=== PATIENT | female | born 1955 | race African-American/Black ===

== ENCOUNTER 2022-09-06 13:51 | Inpatient (IN) | payer OTHER ==
[2022-09-06] MEDS ORDERED: ONDANSETRON 4 MG/2 ML VIAL ONE (14:32)
--- NOTE | 2022-09-06 15:17 | RAD REPORT ---
EXAM DESCRIPTION: RAD - Chest Single View - 09/06/2022 3:02 pm CLINICAL HISTORY: CHEST PAIN Chest pain. COMPARISON: Chest Single View dated 02/18/2016; Chest Single View dated 02/17/2016; CHEST SINGLE VIEW dated 06/16/2011; CHEST SINGLE VIEW dated 06/15/2011 FINDINGS: Portable technique limits examination quality. Mild bilateral pulmonary opacities may represent pulmonary edema or pneumonia. The heart is mildly en larged in size. No displaced fractures. IMPRESSION: CHF/ volume overload versus pneumonia.
[2022-09-06 15:43] LABS: Absolute Lymphocytes (CBC) 1.9 K/uL (0.7-4.9); Hematocrit 37.7 % (36.0-45.0); Lymphocytes % 10.3 % (15.3-44.8); MCV 70.9 fL (80-100); RBC Red Blood Cell Count 5.31 M/uL (3.86-4.86)
[2022-09-06 15:55] LABS: Protime INR 1.05
[2022-09-06 16:15] LABS: ALT/SGPT 15 U/L (13-56); AST/SGOT 15 U/L (15-37); Albumin 3.1 g/dL (3.4-5.0); Alkaline Phosphatase 115 U/L (45-117); BUN Blood Urea Nitrogen 17 mg/dL (7-18); Bicarbonate 23 mmol/L (21-32); Bilirubin Total 0.3 mg/dL (0.2-1.0); Glomerular Filtration Rate 63 ml/min (=/>90); Glucose Level 180 mg/dL (74-106); Magnesium 2.3 mg/dL (1.6-2.4); NT PRO-BNP 118 pg/mL (<125); Protein, Total 8.2 g/dL (6.4-8.2); Sodium Level 141 mmol/L (136-145); Troponin High Sensitivity 18.6 pg/mL (<58.9)
[2022-09-06 16:32] LABS: Bilirubin Direct < 0.1 mg/dL (0-0.2)
[2022-09-06 16:51] LABS: Urine Blood Negative (Negative); Urine Glucose Negative (Negative); Urine Protein 2+ (Negative); Urine Specific Gravity >=1.030 (1.005-1.030)
[2022-09-06 17:06] LABS: Urine Bacteria None Seen /HPF (<20); Urine Mucus Slight /HPF (None Seen); Urine RBC <5 /HPF (None Seen)
--- NOTE | 2022-09-06 17:20 | RAD REPORT ---
EXAM DESCRIPTION: CTAbdomen Pelvis W Contrast - 09/06/2022 5:13 pm CLINICAL HISTORY: Abdominal pain. ABD PAIN COMPARISON: No comparisons TECHNIQUE: Biphasic CT imaging of the abdomen and pelvis was performed with 100 ml non-ionic IV cont rast. All CT scans are performed using dose optimization technique as appropriate and may include automated exposure control or mA/KV adjustment according to patient size. FINDINGS: The lung bases are clear.Cholecystectomy clips. The liver, spleen, pancreas, adrenal glands and kidneys are within normal limits. No bowel obstruction, free air, free fluid or abscess. Aortoiliac atherosclerosis. Nonvisualized appe ndix. No evidence of significant lymphadenopathy. No suspicious bony findings. IMPRESSION: No acute intra-abdominal or pelvic finding.
--- NOTE | 2022-09-06 17:26 | EDPHYS ---
Physician Documentation [facility] Name: Renetta Palmer Age: 67 yrs Sex: Female : 1955 Arrival Date: 09/06/2022 Time: 13:55 Bed 16 Private MD: ED Physician Mariam Solomon HPI: 09/06 14:36 This 67 yrs old Black Female presents to ER via EMS with complaints of Epigastric Pain, sp3 Arm Problem. 14:36 67-year-old female with a history of CVA, diabetes, anemia, anxiety presents from the [facility] with chief complaint epigastric pain and nausea for approximately 24 hours. She notified [facility] staff of her symptoms to activated EMS to bring her into the ED. Vital signs have been normal for EMS patient has no other complaints including fever, URI symptoms, chest pain, back pain, shortness of breath, actual vomiting, diarrhea bleeding, any other symptoms on ROS. Surgical history includes cholecystectomy.. Historical: - Allergies: 14:10 No Known Allergies; ph - PMHx: 14:10 Anxiety; Anemia; constipation; CVA; Depression; Diabetes - NIDDM; Difficulty walking; ph GERD; Gout; Hemiplegia R; Hyperlipidemia; Hypertension; insomnia; MUSCLE WEAKNESS; Toe amputation R foot; VASCULAR DEMENTIA; - Immunization history:: Adult Immunizations up to date. - Social history:: Smoking status: Patient denies any tobacco usage or history of. ROS: 14:37 Constitutional: Negative for fever, chills, and weight loss, Eyes: Negative for injury, sp3 pain, redness, and discharge, Neck: Negative for injury, pain, and swelling, Cardiovascular: Negative for chest pain, palpitations, and edema, Respiratory: Negative for shortness of breath, cough, wheezing, and pleuritic chest pain, Back: Negative for injury and pain, MS/Extremity: Negative for injury and deformity, Skin: Negative for injury, rash, and discoloration, Neuro: Negative for headache, weakness, numbness, tingling, and seizure, Psych: Negative for depression, anxiety, suicide ideation, homicidal ideation, and hallucinations, Allergy/Immunology: Negative for hives, rash, and allergies, Endocrine: Negative for neck swelling, polydipsia, polyuria, polyphagia, and marked weight changes, Hematologic/Lymphatic: Negative for swollen nodes, abnormal bleeding, and unusual bruising. 14:37 All other systems are negative. Exam: 14:37 Constitutional: This is a well developed, well nourished patient who is awake, alert, sp3 and in no acute distress. Head/Face: Normocephalic, atraumatic. Eyes: Pupils equal round and reactive to light, extra-ocular motions intact. Lids and lashes normal. Conjunctiva and sclera are non-icteric and not injected. Cornea within normal limits. Periorbital areas with no swelling, redness, or edema. Neck: Trachea midline, no thyromegaly or masses palpated, and no cervical lymphadenopathy. Supple, full range of motion without nuchal rigidity, or vertebral point tenderness. No Meningismus. Chest/axilla: Normal chest wall appearance and motion. Nontender with no deformity. No lesions are appreciated. Cardiovascular: Regular rate and rhythm with a normal S1 and S2. No gallops, murmurs, or rubs. Normal PMI, no JVD. No pulse deficits. Respiratory: Lungs have equal breath sounds bilaterally, clear to auscultation and percussion. No rales, rhonchi or wheezes noted. No increased work of breathing, no retractions or nasal flaring. Back: No spinal tenderness. No costovertebral tenderness. Full range of motion. Skin: Warm, dry with normal turgor. Normal color with no rashes, no lesions, and no evidence of cellulitis. MS/ Extremity: Pulses equal, no cyanosis. Neurovascular intact. Full, normal range of motion. Neuro: Awake and alert, GCS 15, oriented to person, place, time, and situation. Cranial nerves II-XII grossly intact. Motor strength 5/5 in all extremities. Sensory grossly intact. Cerebellar exam normal. Normal gait. Psych: Awake, alert, with orientation to person, place and time. Behavior, mood, and affect are within normal limits. 14:37 Abdomen/GI: Patient with mild epigastric pain without peritoneal signs, rebound or guarding. Patient is resting comfortably and there is no pain at rest without palpation.. 18:21 ECG was reviewed by the Attending Physician. EKG demonstrates normal sinus rhythm at 70 sp3 bpm with normal intervals, normal QRS, normal axis, nonspecific diffuse ST/T changes without evidence of acute ischemia. In the setting of EKG with artifact. Vital Signs: 14:03 BP 159 / 48; Pulse 76; Resp 18; Temp 97.9; Pulse Ox 95% on R/A; Weight 83.91 kg; Height ph 5 ft. 4 in. (162.56 cm); 15:15 BP 161 / 51; Pulse 66; Resp 16; Pulse Ox 95% on R/A; ph 16:14 BP 159 / 45; Pulse 67; Resp 18; Pulse Ox 96% on R/A; ph 19:17 BP 169 / 67; Pulse 68; Resp 18; Pulse Ox 94% on R/A; ph 20:20 BP 165 / 65; Pulse 65; Resp 18; Temp 98.4(O); Pulse Ox 94% on R/A; Pain 8/10; pf1 14:03 Body Mass Index 31.75 (83.91 kg, 162.56 cm) ph MDM: 14:09 Patient medically screened. sp3 14:38 Data reviewed: vital signs, nurses notes, EMS record, [facility] records, lab test sp3 result(s), EKG, radiologic studies. ED course: 67-year-old female with PMH noted above with epigastric pain. Differential diagnosis is broad and includes pancreatitis, ACS, pneumonia, aortic pathology, UTI/kidney stone/pyelonephritis, no abdominal pain, among others. I am not highly suspicious for mesenteric ischemia, shock, or any other critical findings. Will include CT scan of the abdomen and pelvis, laboratory values, EKG, urine analysis, and general observation and supportive care. Zofran IV has been ordered. Patient declined pain medication at this time. Ultimate disposition pending work-up and patient course.. 17:22 ED course: 67-year-old female with pneumonia on chest x-ray and elevated WBC sp3 count/leukocytosis. CT scan of the abdomen pelvis is negative. We will start antibiotics and admit patient at this time. Blood cultures were also be drawn.. 09/06 14:09 Order name: Basic Metabolic Panel; Complete Time: 16:37 sp3 09/06 14:09 Order name: CBC with Diff; Complete Time: 16:37 sp3 09/06 14:09 Order name: LFT's; Complete Time: 16:37 sp3 09/06 14:09 Order name: Magnesium; Complete Time: 16:37 sp3 09/06 14:09 Order name: NT PRO-BNP; Complete Time: 16:37 sp3 09/06 14:09 Order name: PT-INR; Complete Time: 16:37 sp3 09/06 14:09 Order name: Troponin HS; Complete Time: 16:37 sp3 09/06 14:09 Order name: UA MICROSCOPIC; Complete Time: 17:22 sp3 09/06 16:51 Order name: Urine Dipstick-Ancillary; Complete Time: 17:22 EDMS 09/06 17:24 Order name: Blood Culture Adult (2) sp3 09/06 17:32 Order name: COVID-19/FLU A+B ph 09/06 19:14 Order name: Magnesium EDMS 09/06 19:14 Order name: Phosphorus EDMS 09/06 19:14 Order name: T4 Free EDMS 09/06 14:09 Order name: XRAY Chest (1 view); Complete Time: 16:37 sp3 09/06 14:09 Order name: EKG; Complete Time: 14:10 sp3 09/06 14:09 Order name: Cardiac monitoring; Complete Time: 17:19 sp3 09/06 14:24 Order name: CT Abd/Pelvis - IV Contrast Only; Complete Time: 17:22 sp3 09/06 19:14 Order name: 60g Consistent Carbohydrate (ADA 1800/2000); Complete Time: 20:01 EDMS 09/06 19:14 Order name: Thyroid Stimulating Hormone EDMS 09/06 19:14 Order name: Urinalysis EDMS 09/06 19:14 Order name: Basic Metabolic Panel EDMS 09/06 19:14 Order name: Basic Metabolic Panel EDMS 09/06 19:14 Order name: CBC with Automated Diff EDMS 09/06 19:14 Order name: CBC with Automated Diff EDMS 09/06 19:14 Order name: NT PRO-BNP EDMS 09/06 19:14 Order name: NT PRO-BNP EDMS 09/06 14:09 Order name: EKG - Nurse/Tech; Complete Time: 17:19 sp3 09/06 14:09 Order name: IV Saline Lock; Complete Time: 15:40 sp3 09/06 14:09 Order name: Labs collected and sent; Complete Time: 15:40 sp3 09/06 14:09 Order name: O2 Per Protocol; Complete Time: 15:40 sp3 09/06 14:09 Order name: O2 Sat Monitoring; Complete Time: 15:40 sp3 09/06 14:09 Order name: Urine Dipstick-Ancillary (obtain specimen); Complete Time: 16:55 sp3 09/06 14:46 Order name: Misc. Order: recollect all labs; Complete Time: 16:42 jl7 Administered Medications: 15:15 Drug: Zofran (Ondansetron) 4 mg Route: IVP; Site: left antecubital; ph 19:32 Follow up: Response: No adverse reaction; Nausea is decreased ph 20:10 Drug: Cefepime 1 grams Route: IVPB; Rate: 200 ml/hr; Infused Over: 30 mins; Site: left pf1 antecubital; 20:46 Follow up: Response: No adverse reaction; IV Status: Completed infusion; IV Intake: ll3 100ml 20:46 Drug: vancoMYCIN 1 grams Route: IVPB; Infused Over: 2 hrs; Site: left antecubital; ll3 21:38 Follow up: Response: No adverse reaction; IV Status: Infusion continued upon admission pf1 Disposition Summary: 09/06/22 17:26 Hospitalization Ordered Hospitalization Status: Inpatient Admission sp3 Provider: Barry Rahman sp3 [facility] sp3 Condition: Stable sp3 Problem: new sp3 Symptoms: have worsened sp3 Bed/Room Type: Standard sp3 Room Assignment: 405(09/06/22 20:39) cg Diagnosis - Lobar pneumonia, unspecified organism sp3 Forms: - Medication Reconciliation Form sp3 - SBAR form sp3 Signatures: Dispatcher [employer] EDDevora New RN RN ph Garcia, Cindy RN RN Heidi Broderick RN RN jl7 Mariam Solomon MD MD sp3 Niru Hawkins RN RN ll3 Kenzie urbina RN RN pf1 Corrections: (The following items were deleted from the chart) 20:39 17:26 sp3 cg
--- NOTE | 2022-09-06 17:26 | ER ---
Nurse's Notes [facility] [place] Name: Renetta Palmer Age: 67 yrs Sex: Female : 1955 Arrival Date: 09/06/2022 Time: 13:55 Bed 16 Private MD: Diagnosis: Lobar pneumonia, unspecified organism Presentation: 09/06 14:03 Chief complaint: EMS states: Pt from [facility], reports nausea, upset ph stomach, and loss of appetite for "a few days", staff also reported L arm numbness, pt denies at this time, hypertensive w/ systolic in 160s, BGL 190. Coronavirus screen: Vaccine status: Patient reports receiving the 2nd dose of the covid vaccine. Ebola Screen: No symptoms or risks identified at this time. Initial Sepsis Screen: Does the patient meet any 2 criteria? No. Patient's initial sepsis screen is negative. Does the patient have a suspected source of infection? No. Patient's initial sepsis screen is negative. Risk Assessment: Do you want to hurt yourself or someone else? Patient reports no desire to harm self or others. Onset of symptoms was September 06, 2022. 14:03 Method Of Arrival: EMS: [facility] 14:03 Acuity: CRYS 3 ph Triage Assessment: 14:11 General: Appears in no apparent distress. uncomfortable, Behavior is calm, cooperative, ph appropriate for age. Pain: Complains of pain in abdomen. Neuro: Level of Consciousness is awake, alert, obeys commands, Oriented to person, place, situation. Cardiovascular: Reports nausea, Denies chest pain, shortness of breath, Capillary refill < 3 seconds in bilateral fingers Patient's skin is warm and dry. Respiratory: Airway is patent Respiratory effort is even, unlabored, Respiratory pattern is regular, symmetrical. GI: Abdomen is non-distended, Reports upper abdominal pain, nausea. : No signs and/or symptoms were reported regarding the genitourinary system. Historical: - Allergies: 14:10 No Known Allergies; ph - PMHx: 14:10 Anxiety; Anemia; constipation; CVA; Depression; Diabetes - NIDDM; Difficulty walking; ph GERD; Gout; Hemiplegia R; Hyperlipidemia; Hypertension; insomnia; MUSCLE WEAKNESS; Toe amputation R foot; VASCULAR DEMENTIA; - Immunization history:: Adult Immunizations up to date. - Social history:: Smoking status: Patient denies any tobacco usage or history of. Screenin:12 [facility] ED Fall Risk Assessment (Adult) History of falling in the last 3 months, ph including since admission No falls in past 3 months (0 pts) Confusion or Disorientation Yes (5 pts) Intoxicated or Sedated No (0 pts) Impaired Gait Yes (1 pt) Mobility Assist Device Used Yes (1 pt) Altered Elimination Yes (1 pt) Score/Fall Risk Level 3 or more points = High Risk Oriented to surroundings, Maintained a safe environment, Provided non-skid footwear, Hourly rounding (assess needs \\T\\ fall precautionary measures) done, Activated bed/chair alarm. Abuse screen: Denies threats or abuse. Denies injuries from another. Nutritional screening: No deficits noted. Tuberculosis screening: No symptoms or risk factors identified. Assessment: 14:30 General: SEE TRIAGE ASSESSMENT. ph 16:16 Reassessment: Patient appears in no apparent distress at this time. Patient and/or ph family updated on plan of care and expected duration. Pain level reassessed. Pt drowsy but awakens easily to verbal stimuli, VSS. 17:30 Reassessment: Patient appears in no apparent distress at this time. Patient and/or ph family updated on plan of care and expected duration. Pain level reassessed. Derm: Decubitus located on sacrum approximately 2.6 cm to 7.5 cm is stage II bed has granulation present is draining small amount serosanguinous. 18:00 Reassessment: Patient appears in no apparent distress at this time. Patient and/or ph family updated on plan of care and expected duration. Pain level reassessed. Patient is alert, oriented x 3, equal unlabored respirations, skin warm/dry/pink. 19:00 General: Appears in no apparent distress. comfortable, obese, well groomed, Behavior is pf1 calm, cooperative, appropriate for age, quiet. 19:00 Pain: Complains of pain in abdomen Pain currently is 8 out of 10 on a pain scale. Pain: pf1 Pain began 2 days. Neuro: No deficits noted. Level of Consciousness is awake, alert, obeys commands, Oriented to person, place, time, situation. Cardiovascular: No deficits noted. Capillary refill < 3 seconds Patient's skin is warm and dry. Respiratory: No deficits noted. Airway is patent Trachea midline Respiratory effort is even, unlabored, Respiratory pattern is regular, symmetrical, Breath sounds are clear. GI: Abdomen is round non-distended, Bowel sounds present X 4 quads. Abd is soft Abdomen is tender to palpation in right upper quadrant, left upper quadrant, right lower quadrant and left lower quadrant with constipation. Patient stated LBM was today with small soft stool. 19:00 : No deficits noted. No signs and/or symptoms were reported regarding the pf1 genitourinary system. EENT: No deficits noted. No signs and/or symptoms were reported regarding the EENT system. Derm: Decubitus located on sacrum approximately 2.6 cm to 7.5 cm is stage II bed has granulation present is draining small amount serosanguinous. Musculoskeletal: Reports numbness in left hand. 19:17 Reassessment: Patient appears in no apparent distress at this time. Patient and/or ph family updated on plan of care and expected duration. Pain level reassessed. Patient is alert, oriented x 3, equal unlabored respirations, skin warm/dry/pink. 20:00 Reassessment: Patient appears in no apparent distress at this time. No changes from pf1 previously documented assessment. Patient and/or family updated on plan of care and expected duration. Pain level reassessed. Patient is alert, oriented x 3, equal unlabored respirations, skin warm/dry/pink. 21:00 Reassessment: Patient appears in no apparent distress at this time. No changes from pf1 previously documented assessment. Patient and/or family updated on plan of care and expected duration. Pain level reassessed. Patient is alert, oriented x 3, equal unlabored respirations, skin warm/dry/pink. Vital Signs: 14:03 BP 159 / 48; Pulse 76; Resp 18; Temp 97.9; Pulse Ox 95% on R/A; Weight 83.91 kg; Height ph 5 ft. 4 in. (162.56 cm); 15:15 BP 161 / 51; Pulse 66; Resp 16; Pulse Ox 95% on R/A; ph 16:14 BP 159 / 45; Pulse 67; Resp 18; Pulse Ox 96% on R/A; ph 19:17 BP 169 / 67; Pulse 68; Resp 18; Pulse Ox 94% on R/A; ph 20:20 BP 165 / 65; Pulse 65; Resp 18; Temp 98.4(O); Pulse Ox 94% on R/A; Pain 8/10; pf1 14:03 Body Mass Index 31.75 (83.91 kg, 162.56 cm) ph ED Course: 13:55 Patient arrived in ED. ph 13:59 Mariam Solomon MD is Attending Physician. sp3 14:03 Devora Rabago, RN is Primary Nurse. ph 14:10 Triage completed. ph 14:11 Arm band placed on Patient placed in an exam room, on a stretcher. ph 14:13 Patient has correct armband on for positive identification. Bed in low position. Call ph light in reach. Side rails up X2. Pulse ox on. NIBP on. 14:13 Inserted saline lock: 20 gauge in left antecubital area, using aseptic technique. Blood ph collected. 15:04 XRAY Chest (1 view) In Process Unspecified. EDMS 15:21 Missed attempt(s): 22 gauge in right antecubital area. Bleeding controlled, band aid ph applied, catheter tip intact. 16:55 UA MICROSCOPIC Sent. zm 17:15 CT Abd/Pelvis - IV Contrast Only In Process Unspecified. EDMS 17:26 Barry Rahman is Hospitalizing Provider. sp3 19:00 Patient has correct armband on for positive identification. Bed in low position. Call pf1 light in reach. Side rails up X2. 19:32 No provider procedures requiring assistance completed. Patient admitted, IV remains in ph place. 20:17 Urinalysis Sent. pf1 Administered Medications: 15:15 Drug: Zofran (Ondansetron) 4 mg Route: IVP; Site: left antecubital; ph 19:32 Follow up: Response: No adverse reaction; Nausea is decreased ph 20:10 Drug: Cefepime 1 grams Route: IVPB; Rate: 200 ml/hr; Infused Over: 30 mins; Site: left pf1 antecubital; 20:46 Follow up: Response: No adverse reaction; IV Status: Completed infusion; IV Intake: ll3 100ml 20:46 Drug: vancoMYCIN 1 grams Route: IVPB; Infused Over: 2 hrs; Site: left antecubital; ll3 21:38 Follow up: Response: No adverse reaction; IV Status: Infusion continued upon admission pf1 Medication: 14:13 VIS not applicable for this client. ph Intake: 20:46 IV: 100ml; Total: 100ml. ll3 Outcome: 17:26 Decision to Hospitalize by Provider. sp3 21:21 Admitted to Tele accompanied by tech, via stretcher, room 405, with chart, Report pf1 called to [facility] 21:22 Condition: stable pf1 21:22 Instructed on the need for admit, Demonstrated understanding of instructions. 21:38 Patient left the ED. pf1 Signatures: Dispatcher [employer] Devora Kelly RN RN ph Mariam Solomon MD MD sp3 Niru Hawkins RN RN ll3 Rena Webster Pamala, RN RN pf1 Corrections: (The following items were deleted from the chart) 14:12 14:11 Cardiovascular: Capillary refill < 3 seconds in bilateral fingers Patient's skin ph is warm and dry. ph 14:12 14:11 Musculoskeletal: Circulation, motion, and sensation intact. Range of motion: ph intact in all extremities, ph [id number] 02:32 02/07 19:00 General: Appears in no apparent distress. comfortable, obese, well groomed, pf1 pf1
[2022-09-06] MEDS ORDERED: CEFEPIME 1 GM/VIAL ONE (18:07)
[2022-09-06] MEDS ORDERED: NA CHLORIDE 0.9% 100 ML ONE (18:07)
[2022-09-06] MEDS ORDERED: VANCOMYCIN 1 GM/VIAL ONE (18:07)
[2022-09-06] MEDS ORDERED: NA CHLORIDE 0.9% 250 ML ONE (18:07)
[2022-09-06 18:39] LABS: SARS-COV-2 RT PCR NEGATIVE (NEGATIVE)
[2022-09-06] MEDS ORDERED: ACETAMINOPHEN 325 MG TABLET PO PRN (19:06)
[2022-09-06] MEDS ORDERED: HYDROCODONE/APAP 5/325 MG TAB PO PRN (19:06)
[2022-09-06] MEDS ORDERED: MELATONIN PO PRN (19:08)
[2022-09-06] MEDS ORDERED: SIMETHICONE 80 MG TAB PO PRN (19:08)
[2022-09-06] MEDS ORDERED: MAGNESIUM HYDROXIDE 8% 30 ML PO PRN (19:08)
[2022-09-06] MEDS ORDERED: PYRIDOXINE HCL PO PRN (19:08)
[2022-09-06] MEDS ORDERED: ALBUTEROL 2.5 MG/3 ML NEB SOL NEB PRN (19:12)
[2022-09-06] MEDS ORDERED: ONDANSETRON 4 MG/2 ML VIAL IV PRN (19:12)
--- NOTE | 2022-09-06 19:16 | P.HP ---
Certification for Inpatient Patient admitted to: Inpatient With expected LOS: >2 Midnights Patient will require the following post-hospital care: None Practitioner: I am a practitioner with admitting privileges, knowledge of patient current condition, hospital course, and medical plan of care. Services: Services provided to patient in accordance with Admission requirements found in Title 42 Section 412.3 of the Code of Federal Regulations Patient History Date of Service: 09/06/22 Reason for admission: Left upper quadrant pain. History of Present Illness: Patient is a 67-year-old female with a past medical history significant for CVA, depression, DM 2, GERD, gout, hemiplegia, HLD, insomnia, hypertension, vascular dementia who presents with complaint of abdominal pain located in left upper quadrant that has been ongoing for the past couple of days. Patient is a poor historian and unable to provide accurate history. Patient rated pain as 10/10 in severity and described pain as aching in quality. Patient reported associated signs and symptoms of shortness of breath, cough, headache and nausea. Patient denies any other signs or symptoms. Symptoms are aggravated or relieved by nothing. Patient was brought to the hospital for medical evaluation. Allergies No Known Allergies Allergy (Verified 01/04/16 10:46) Home Medications: Acetaminophen with Codeine [Tylenol with Codeine #4 Tablet] 1 tab PO Q4H PRN 02/17/16 Aspirin [Aspirin EC 81 MG] 1 tab PO DAILY 02/17/16 Atorvastatin Calcium [Lipitor] 80 mg PO BEDTIME 02/17/16 Baclofen [Lioresal*] 10 mg PO BEDTIME 02/17/16 Baclofen [Lioresal*] 10 mg PO PRN 02/17/16 Carvedilol [Coreg] 25 mg PO BID 02/17/16 Clopidogrel Bisulfate [Plavix] 75 mg PO DAILY 02/17/16 Codeine/APAP [Tylenol #3*] 1 tab PO Q6H 02/17/16 Cranberry Fruit Extract [Cranberry] 405 mg PO DAILY 02/17/16 Divalproex [Depakote Sprinkle*] 125 mg PO BID 02/17/16 Donepezil HCl [Aricept] 10 mg PO BEDTIME 02/17/16 Ferrous Sulfate [Feosol] 325 mg PO DAILY 02/17/16 Gabapentin [Neurontin*] 300 mg PO Q8H 02/17/16 Glimepiride [Amaryl*] 2 mg PO BID 02/17/16 LIDOCAINE 2% JELLY, 5mL [Xylocaine 2% Jelly*] 30 ml MM BEDTIME 02/17/16 Magnesium Hydroxide [Milk of Magnesia] 400 mg PO DAILY PRN 02/17/16 Melatonin/Pyridoxine HCl (B6) [Melatonin-Vit B6 3-10 mg Tab] 1 tab PO BEDTIME PRN 02/17/16 Multivitamin/Iron/Folic Acid [Century Tablet] 1 tab PO DAILY 02/17/16 Pregabalin [Lyrica] 75 mg PO BID 02/17/16 Sennosides [Senna] 1 tab PO BID 02/17/16 Simethicone 80 mg PO TID PRN 02/17/16 Tramadol HCl [Ultram] 50 mg PO Q6H PRN 02/17/16 Venlafaxine HCl [Effexor*] 75 mg PO TID 02/17/16 cilostazoL [Cilostazol] 100 mg PO BID 02/17/16 Hydralazine [Apresoline*] 25 mg PO TID PRN #90 tab 02/19/16 - Past Medical/Surgical History Diabetic: Yes -: HTN -: CVA with right sided lower extremity weakness -: Diabetes mellitus type 2 -: Vascular dementia -: Chronic renal disease -: Anemia -: Appendectomy -: Cholecystectomy -: carotid stents -: femoral stents -: Hysterectomy Psychosocial/ Personal History: She is single, has 5 children. She has been at the [facility] for almost 6 years. - Family History Mother -: Stroke - Social History Smoking Status: Never smoker Alcohol use: No CD- Drugs: No Caffeine use: Yes Place of Residence: [facility] Review of Systems General: Unremarkable Eyes: Unremarkable ENT: Unremarkable Respiratory: Cough, Shortness of Breath Cardiovascular: Unremarkable Gastrointestinal: Nausea, Abdominal Pain Genitourinary: Unremarkable Musculoskeletal: Unremarkable Integumentary: Unremarkable Neurological: Other (HUTSON) Lymphatics: Unremarkable Physical Examination - Physical Exam General: Alert, In no apparent distress, Oriented x3, Cooperative HEENT: Atraumatic, PERRLA, Mucous membr. moist/pink, EOMI, Sclerae nonicteric Neck: Supple, 2+ carotid pulse no bruit, No LAD, Without JVD or thyroid abnormality Respiratory: Normal air movement, Diminished Cardiovascular: No edema, Regular rate/rhythm, Normal S1 S2 Capillary refill: <2 Seconds Gastrointestinal: Normal bowel sounds, Soft and benign, Tenderness Musculoskeletal: No clubbing, No swelling, No contractures Integumentary: No rashes, No breakdown, No significant lesion Neurological: Normal speech, Normal tone, Normal affect, Abnormal strength Lymphatics: No axilla or inguinal lymphadenopathy - Studies Laboratory Data (last 24 hrs) 09/06/22 15:31: PT 11.5, INR 1.05 09/06/22 15:31: WBC 18.50 H, Hgb 11.5 L, Hct 37.7, Plt Count 243 09/06/22 15:31: Sodium 141, Potassium 4.0, BUN 17, Creatinine 0.99, Glucose 180 H, Magnesium 2.3, Total Bilirubin 0.3, AST 15, ALT 15, Alkaline Phosphatase 115 Assessment and Plan - Plan --Pneumonia. Noted on imaging. Patient placed on antibiotics, neb treatment with albuterol and O2 therapy. -- Abdominal pain. No acute intra-abdominal abnormalities noted on imaging we will manage pain with current pain medication regimen. -- History of CVA with right-sided hemiplegia. Continue aspirin, Plavix and statin. --Depression\anxiety disorder. Continue home medications --DM2 with neuropathy.. BS monitoring with sliding scale insulin. Continue gabapentin and lyrica for her neuropathy -- Gout. Continue home medication --Hyperlipidemia. Continue statin. --GERD. Continue Protonix. --KAYODE. Continue ferrous sulfate. -- Insomnia. Continue home medication --Vascular dementia. Patient alert and oriented x3. Continue supportive care. --Leukocytosis. Blood cultures pending. Continue antibiotics. --DVT prophylaxis with Lovenox subQ. Discharge Plan: Home Plan to discharge in: Greater than 2 days - Advance Directives Does patient have a Living Will: No Does patient have a Durable POA for Healthcare: No - Code Status/Comfort Care Code Status Assessed: Yes Physician Review: Patient Assessed, Agree with Above Assessment and Plan Critical Care: No
[2022-09-06 20:17] LABS: Magnesium 2.3 mg/dL (1.6-2.4); Phosphorus 3.7 mg/dL (2.5-4.9); Thyroid Stimulating Hormone 1.06 uIU/mL (0.358-3.740)
[2022-09-06] MEDS ORDERED: ATORVASTATIN 80 MG TAB PO SCH (21:00)
[2022-09-06] MEDS: INSULIN -REGULAR HUMAN 50 UNIT/0.5 ML ML SQ SCH (21:00)
[2022-09-06] MEDS ORDERED: SODIUM CHLORIDE 0.9% 10ML INJ IV PRN (21:20)
[2022-09-06 22:17] VITALS: BMI 36.9
[2022-09-06] MEDS: cilostazoL 100 MG TAB PO SCH (22:40)
[2022-09-06] MEDS: GABAPENTIN 300 MG CAP PO SCH (22:40)
[2022-09-06] MEDS: DIVALPROEX NA 125 MG CAP PO SCH (22:40)
[2022-09-06] MEDS: SENOSIDES 8.6 MG TAB PO SCH (22:40)
[2022-09-06] MEDS: VENLAFAXINE HCL 75 MG TABLET PO SCH (22:40)
[2022-09-06] MEDS: BACLOFEN 10 MG TAB PO SCH (22:41)
[2022-09-06] MEDS: DONEPEZIL HCL 5 MG TAB PO SCH (22:41)
[2022-09-06] MEDS: carvediloL 25 MG TAB PO SCH (22:41)
[2022-09-06] MEDS: PREGABALIN 75 MG CAP PO SCH (23:41)
[2022-09-07] MEDS: GABAPENTIN 300 MG CAP PO SCH ×3 (04:42→22:33)
[2022-09-07 06:28] LABS: Lymphocytes % 21.7 % (15.3-44.8); MCV 71.1 fL (80-100); RBC Red Blood Cell Count 4.64 M/uL (3.86-4.86)
[2022-09-07] MEDS: INSULIN -REGULAR HUMAN 50 UNIT/0.5 ML ML SQ SCH ×4 (07:30→21:00)
[2022-09-07] MEDS: PANTOPRAZOLE 40 MG INJ IVP SCH (08:50)
[2022-09-07] MEDS: CEFTRIAXONE 1,000 MG in NA CHLORIDE 0.9% 50 ML IVPB SCH (08:51)
[2022-09-07] MEDS: AZITHROMYCIN IV 500 MG in NA CHLORIDE 0.9% 250 ML IVPB SCH (08:52)
[2022-09-07] MEDS: DIVALPROEX NA 125 MG CAP PO SCH ×2 (08:54→22:30)
[2022-09-07] MEDS: ENOXAPARIN 40 MG/0.4 ML SQ SCH (08:54)
[2022-09-07] MEDS: CLOPIDOGREL 75 MG TABLET PO SCH (08:55)
[2022-09-07] MEDS: carvediloL 25 MG TAB PO SCH ×2 (08:55→21:00)
[2022-09-07] MEDS: SENOSIDES 8.6 MG TAB PO SCH ×2 (08:55→22:30)
[2022-09-07] MEDS: PREGABALIN 75 MG CAP PO SCH (08:55)
[2022-09-07] MEDS: MULTIVITAMIN TAB PO SCH (08:55)
[2022-09-07] MEDS: cilostazoL 100 MG TAB PO SCH ×2 (08:55→22:30)
[2022-09-07] MEDS: FERROUS SULFATE 325 MG TAB PO SCH (08:55)
[2022-09-07] MEDS: VENLAFAXINE HCL 75 MG TABLET PO SCH ×3 (08:55→22:30)
[2022-09-07] MEDS: CRANBERRY FRUIT EXTRACT 405 MG PO SCH (08:56)
[2022-09-07] MEDS ORDERED: ASPIRIN 81 MG CHEWABLE TABLET PO SCH (09:00)
[2022-09-07] MEDS ORDERED: ALBUTEROL 2.5 MG/3 ML NEB SOL NEB PRN (12:00)
--- NOTE | 2022-09-07 13:27 | P.PN ---
Subjective Date of Service: 09/07/22 Chief Complaint: Left upper quadrant pain. Patient denies any new complain. She is stable on room air. No recorded fever. Leukocytosis trended down. Physical Examination - Vital Signs Temperature: 96.6 F Blood Pressure: 146/57 Pulse: 50 Respirations: 14 Pulse Ox (%): 92 - Studies Laboratory Data (last 24 hrs) 09/06/22 15:31: PT 11.5, INR 1.05 09/06/22 15:31: WBC 18.50 H, Hgb 11.5 L, Hct 37.7, Plt Count 243 09/06/22 15:31: Sodium 141, Potassium 4.0, BUN 17, Creatinine 0.99, Glucose 180 H, Magnesium 2.3, Total Bilirubin 0.3, AST 15, ALT 15, Alkaline Phosphatase 115 Assessment And Plan - Current Problems (Diagnosis) (1) Pneumonia Onset Date: 02/18/16 Current Visit: No Status: Ruled-out Qualifiers: Pneumonia type: due to unspecified organism (2) Leukocytosis Current Visit: Yes Status: Acute (3) Diabetes mellitus Onset Date: 02/18/16 Current Visit: No Status: Acute Qualifiers: Diabetes mellitus type: type 2 Diabetes mellitus terminal superintendent insulin use: unspecified terminal superintendent insulin use status Diabetes mellitus complication status: with skin complications Diabetes mellitus complication detail: with foot ulcer Qualified Code(s): E11.621 - Type 2 diabetes mellitus with foot ulcer (4) History of CVA (cerebrovascular accident) Current Visit: No Status: Acute - Plan Physical Exam General: Alert, In no apparent distress, Oriented x2, Cooperative Neck: Supple, no elevated JVD Respiratory: Normal air movement, Diminished bilateral Cardiovascular: No edema, Regular rate/rhythm, Normal S1 S2 Gastrointestinal: Normal bowel sounds, Soft and benign, nontender. Musculoskeletal: No clubbing, No swelling. Integumentary: No rashes. Neurological: Normal speech, right-sided weakness. Plan: Patient with leukocytosis and chest x-ray with minimal evidence of pneumonia. Leukocytosis trended down. Blood cultures pending. Continue Antibiotics. Continue to monitor CBC to follow leukocytosis Diet as tolerated. Continue other home medications. Insulin sliding scale for glucose management. Awaiting culture results and if negative will DC to longterm with oral antibiotics. Physician Review: Patient Assessed, Agree with Above Assessment and Plan
[2022-09-07] MEDS ORDERED: CLONIDINE 0.1 MG/PATCH TD SCH (14:15)
[2022-09-07] MEDS ORDERED: TRAZODONE 50 MG TABLET PO SCH (21:00)
[2022-09-07] MEDS: JUVEN PACKET PO SCH (21:00)
[2022-09-07] MEDS ORDERED: HOME MED 1 EA UNK (Pregabalin [Lyrica] 100 MG Capsule) PO SCH (21:00)
[2022-09-07] MEDS ORDERED: ATORVASTATIN 40 MG TAB PO SCH (21:00)
[2022-09-07] MEDS: PREGABALIN 50 MG CAP PO SCH (22:29)
[2022-09-07] MEDS: DONEPEZIL HCL 5 MG TAB PO SCH (22:30)
[2022-09-07] MEDS: BACLOFEN 10 MG TAB PO SCH (22:31)
[2022-09-07] MEDS: HYDRALAZINE HCL 25 MG TABLET PO PRN (22:41)
[2022-09-08 04:04] LABS: Absolute Lymphocytes (CBC) 4.1 K/uL (0.7-4.9); Hematocrit 32.7 % (36.0-45.0); MCV 70.9 fL (80-100); MPV 8.8 fL (7.6-11.3); RBC Red Blood Cell Count 4.62 M/uL (3.86-4.86)
[2022-09-08 05:23] LABS: Blood Morphology Comment NOTED (NOT SEEN); Hypochromasia 2+; Platelet Estimate ADEQ; White Blood Cell Scan OK (OK)
[2022-09-08] MEDS: GABAPENTIN 300 MG CAP PO SCH ×2 (05:46→12:19)
[2022-09-08] MEDS: HYDRALAZINE HCL 25 MG TABLET PO PRN (07:14)
[2022-09-08] MEDS: INSULIN -REGULAR HUMAN 50 UNIT/0.5 ML ML SQ SCH ×2 (07:30→11:30)
--- NOTE | 2022-09-08 07:59 | EKG ---
Test Date: 2022-09-06 Test Time: 16:50:16 Inspector Mechanical: PH MEASUREMENT RESULTS: Intervals: Rate: 69 IL: 152 QRSD: 82 QT: 430 QTc: 460 [place]: P: 63 IL: 152 QRS: 20 T: 38 INTERPRETIVE STATEMENTS: Normal sinus rhythm Normal ECG Compared to ECG 02/18/2016 06:43:09 No significant changes Electronically Signed On 09-08-22 07:55:40 DISTRICT EXTENSION SERVICE AGENT by Martir Lyman
[2022-09-08] MEDS: PREGABALIN 50 MG CAP PO SCH (08:19)
[2022-09-08] MEDS: ENOXAPARIN 40 MG/0.4 ML SQ SCH (08:19)
[2022-09-08] MEDS: cilostazoL 100 MG TAB PO SCH (08:20)
[2022-09-08] MEDS: carvediloL 25 MG TAB PO SCH (08:20)
[2022-09-08] MEDS: FERROUS SULFATE 325 MG TAB PO SCH (08:20)
[2022-09-08] MEDS: SENOSIDES 8.6 MG TAB PO SCH (08:22)
[2022-09-08] MEDS: DIVALPROEX NA 125 MG CAP PO SCH (08:22)
[2022-09-08] MEDS: MULTIVITAMIN TAB PO SCH (08:23)
[2022-09-08] MEDS: VENLAFAXINE HCL 75 MG TABLET PO SCH ×2 (08:23→13:58)
[2022-09-08] MEDS: CLOPIDOGREL 75 MG TABLET PO SCH (08:23)
[2022-09-08] MEDS: PANTOPRAZOLE 40 MG INJ IVP SCH (08:24)
[2022-09-08] MEDS: CEFTRIAXONE 1,000 MG in NA CHLORIDE 0.9% 50 ML IVPB SCH (08:24)
[2022-09-08] MEDS: CRANBERRY FRUIT EXTRACT 405 MG PO SCH (08:28)
[2022-09-08] MEDS: JUVEN PACKET PO SCH (08:33)
[2022-09-08] MEDS: AZITHROMYCIN IV 500 MG in NA CHLORIDE 0.9% 250 ML IVPB SCH (09:00)
[2022-09-08] MEDS ORDERED: NIFEDIPINE XL 90 MG TABLET PO SCH (09:00)
[2022-09-08] MEDS ORDERED: FAMOTIDINE 20 MG TAB PO SCH (09:00)
[2022-09-08] MEDS ORDERED: ASPIRIN EC 81 MG TAB PO SCH (09:00)
[2022-09-08] MEDS ORDERED: ISOSORBIDE MONO SR 60 MG TAB PO SCH (09:00)
--- NOTE | 2022-09-08 09:08 | P.DS ---
Admission Date: 09/06/22 Discharge Date: 09/08/22 Disposition: TRANSFER TO [facility] Discharge Condition: FAIR Reason for Admission: Left upper quadrant pain. - Problems (1) Pneumonia Onset Date: 02/18/16 Current Visit: No Status: Ruled-out Qualifiers: Pneumonia type: due to unspecified organism (2) Leukocytosis Current Visit: Yes Status: Acute (3) Diabetes mellitus Onset Date: 02/18/16 Current Visit: No Status: Acute Qualifiers: Diabetes mellitus type: type 2 Diabetes mellitus intermediate accountant insulin use: unspecified senior care insulin use status Diabetes mellitus complication status: with skin complications Diabetes mellitus complication detail: with foot ulcer Qualified Code(s): E11.621 - Type 2 diabetes mellitus with foot ulcer (4) History of CVA (cerebrovascular accident) Current Visit: No Status: Acute Vital Signs/Physical Exam: Temp Pulse Resp BP Pulse Ox 96.8 F 61 18 191/80 H 97 09/08/22 08:00 09/08/22 08:20 09/08/22 08:00 09/08/22 08:20 09/08/22 08:00 Laboratory Data at Discharge: WBC 13.10 K/uL (4.3-10.9) H 09/08/22 02:41 Hgb 9.9 g/dL (12.0-15.0) L 09/08/22 02:41 Hct 32.7 % (36.0-45.0) L 09/08/22 02:41 Plt Count 229 K/uL (152-406) 09/08/22 02:41 PT 11.5 SECONDS (9.5-12.5) 09/06/22 15:31 INR 1.05 09/06/22 15:31 Sodium 141 mmol/L (136-145) 09/08/22 02:41 Potassium 4.0 mmol/L (3.5-5.1) 09/08/22 02:41 BUN 18 mg/dL (7-18) 09/08/22 02:41 Creatinine 0.83 mg/dL (0.55-1.02) 09/08/22 02:41 Glucose 134 mg/dL (74-106) H 09/08/22 02:41 Phosphorus 3.7 mg/dL (2.5-4.9) 09/06/22 19:40 Magnesium 2.3 mg/dL (1.6-2.4) 09/06/22 19:40 Total Bilirubin 0.3 mg/dL (0.2-1.0) 09/06/22 15:31 AST 15 U/L (15-37) 09/06/22 15:31 ALT 15 U/L (13-56) 09/06/22 15:31 Alkaline Phosphatase 115 U/L (45-117) 09/06/22 15:31 Home Medications: Aspirin [Aspirin EC 81 MG] 1 tab PO DAILY 02/17/16 Baclofen [Lioresal*] 10 mg PO BEDTIME 02/17/16 Clopidogrel Bisulfate [Plavix] 75 mg PO DAILY 02/17/16 Donepezil HCl [Aricept] 20 mg PO BEDTIME 02/17/16 Ferrous Sulfate [Feosol] 325 mg PO DAILY 02/17/16 Gabapentin [Neurontin*] 300 mg PO Q8H 02/17/16 Tramadol HCl [Ultram] 50 mg PO Q6H PRN 02/17/16 Acetaminophen 650 mg PO Q6HP PRN 09/06/22 Atorvastatin Calcium 40 mg PO BEDTIME 09/06/22 Famotidine 20 mg PO DAILY 09/06/22 Hydralazine [Apresoline*] 100 mg PO TID 09/06/22 Insulin Glargine,Hum.rec.anlog [Lantus] 35 unit SQ BEDTIME 09/06/22 Insulin Glargine,Hum.rec.anlog [Lantus] 70 unit SQ DAILY 09/06/22 Insulin Lispro [Humalog Kwikpen U-100] See Protocol SQ ACHS 09/06/22 Isosorbide Mononitrate [Isosorbide Mononitrate ER] 120 mg PO DAILY 09/06/22 NIFEdipine [Nifedipine ER] 90 mg PO DAILY 09/06/22 Pregabalin [Lyrica] 100 mg PO BID 09/06/22 Trazodone HCl 100 mg PO BEDTIME 09/06/22 Venlafaxine HCl [Effexor XR] 150 mg PO BID 09/06/22 cloNIDine [Clonidine] 1 each TD EVERY 7TH DAY 09/06/22 Cranberry Fruit Extract [Cranberry] 405 mg PO DAILY 09/08/22 Senosides [Senokot*] 8.6 mg PO BID #0 tab 09/08/22 levoFLOXacin [Levaquin] 750 mg PO DAILY #7 tab 09/08/22 New Medications: levoFLOXacin [Levaquin] 750 mg PO DAILY #7 tab Diet: ADA Activity: Fall precautions Followup: NONE,NONE [Primary Care Provider] -
--- NOTE | 2022-09-08 10:07 | P.DS ---
Admission Date: 09/06/22 Discharge Date: 09/08/22 Disposition: TRANSFER TO SNF Discharge Condition: FAIR Reason for Admission: Left upper quadrant pain. - Problems (1) Pneumonia Onset Date: 02/18/16 Current Visit: No Status: Ruled-out Qualifiers: Pneumonia type: due to unspecified organism (2) Leukocytosis Current Visit: Yes Status: Acute (3) Diabetes mellitus Onset Date: 02/18/16 Current Visit: No Status: Acute Qualifiers: Diabetes mellitus type: type 2 Diabetes mellitus truck terminal manager insulin use: unspecified mcc insulin use status Diabetes mellitus complication status: with skin complications Diabetes mellitus complication detail: with foot ulcer Qualified Code(s): E11.621 - Type 2 diabetes mellitus with foot ulcer (4) History of CVA (cerebrovascular accident) Current Visit: No Status: Acute Brief History of Present Illness: Patient is a 67-year-old female with a past medical history significant for CVA, depression, DM 2, GERD, gout, hemiplegia, HLD, insomnia, hypertension, vascular dementia who presented with complaint of abdominal pain located in left upper quadrant that has been ongoing for the past couple of days. Patient is a poor historian and unable to provide accurate history. Patient rated pain as 10/10 in severity and described pain as aching in quality. Patient reported assoc iated signs and symptoms of shortness of breath, cough, headache and nausea. Chest x-ray demonstrated mild bilateral pulmonary opacities suggestive of pneumonia versus edema. Patient was not hypoxic. She did not meet criteria for sepsis. Patient was hospitalized for further management. Hospital Course: Patient with leukocytosis and chest x-ray with minimal evidence of pneumonia. Patient admitted to the medical and treated with antibiotics, bronchodilators. Leukocytosis trended down. Blood cultures yielded no growth. Patient's symptoms resolved. She tolerated diet. Home medications continued during the hospital. She is currently at baseline and clinically stable for discharge. Vital Signs/Physical Exam: Temp Pulse Resp BP Pulse Ox 96.8 F 61 18 191/80 H 97 09/08/22 08:00 09/08/22 08:20 09/08/22 08:00 09/08/22 08:20 09/08/22 08:00 General: Alert, In no apparent distress, Oriented x3 HEENT: Mucous membr. moist/pink Neck: JVD not distended Respiratory: Clear to auscultation bilaterally, Normal air movement Cardiovascular: Regular rate/rhythm, Normal S1 S2 Gastrointestinal: Soft and benign, Non-distended Musculoskeletal: No swelling Integumentary: No cyanosis Laboratory Data at Discharge: WBC 13.10 K/uL (4.3-10.9) H 09/08/22 02:41 Hgb 9.9 g/dL (12.0-15.0) L 09/08/22 02:41 Hct 32.7 % (36.0-45.0) L 09/08/22 02:41 Plt Count 229 K/uL (152-406) 09/08/22 02:41 PT 11.5 SECONDS (9.5-12.5) 09/06/22 15:31 INR 1.05 09/06/22 15:31 Sodium 141 mmol/L (136-145) 09/08/22 02:41 Potassium 4.0 mmol/L (3.5-5.1) 09/08/22 02:41 BUN 18 mg/dL (7-18) 09/08/22 02:41 Creatinine 0.83 mg/dL (0.55-1.02) 09/08/22 02:41 Glucose 134 mg/dL (74-106) H 09/08/22 02:41 Phosphorus 3.7 mg/dL (2.5-4.9) 09/06/22 19:40 Magnesium 2.3 mg/dL (1.6-2.4) 09/06/22 19:40 Total Bilirubin 0.3 mg/dL (0.2-1.0) 09/06/22 15:31 AST 15 U/L (15-37) 09/06/22 15:31 ALT 15 U/L (13-56) 09/06/22 15:31 Alkaline Phosphatase 115 U/L (45-117) 09/06/22 15:31 Home Medications: Aspirin [Aspirin EC 81 MG] 1 tab PO DAILY 02/17/16 Baclofen [Lioresal*] 10 mg PO BEDTIME 02/17/16 Clopidogrel Bisulfate [Plavix] 75 mg PO DAILY 02/17/16 Donepezil HCl [Aricept] 20 mg PO BEDTIME 02/17/16 Ferrous Sulfate [Feosol] 325 mg PO DAILY 02/17/16 Gabapentin [Neurontin*] 300 mg PO Q8H 02/17/16 Tramadol HCl [Ultram] 50 mg PO Q6H PRN 02/17/16 Acetaminophen 650 mg PO Q6HP PRN 09/06/22 Atorvastatin Calcium 40 mg PO BEDTIME 09/06/22 Famotidine 20 mg PO DAILY 09/06/22 Hydralazine [Apresoline*] 100 mg PO TID 09/06/22 Insulin Glargine,Hum.rec.anlog [Lantus] 35 unit SQ BEDTIME 09/06/22 Insulin Glargine,Hum.rec.anlog [Lantus] 70 unit SQ DAILY 09/06/22 Insulin Lispro [Humalog Kwikpen U-100] See Protocol SQ ACHS 09/06/22 Isosorbide Mononitrate [Isosorbide Mononitrate ER] 120 mg PO DAILY 09/06/22 NIFEdipine [Nifedipine ER] 90 mg PO DAILY 09/06/22 Pregabalin [Lyrica] 100 mg PO BID 09/06/22 Trazodone HCl 100 mg PO BEDTIME 09/06/22 Venlafaxine HCl [Effexor XR] 150 mg PO BID 09/06/22 cloNIDine [Clonidine] 1 each TD EVERY 7TH DAY 09/06/22 Cranberry Fruit Extract [Cranberry] 405 mg PO DAILY 09/08/22 Senosides [Senokot*] 8.6 mg PO BID #0 tab 09/08/22 levoFLOXacin [Levaquin] 750 mg PO DAILY #7 tab 09/08/22 New Medications: levoFLOXacin [Levaquin] 750 mg PO DAILY #7 tab Diet: ADA Activity: Fall precautions Followup: NONE,NONE [Primary Care Provider] - Time spent managing pt's care (in minutes): 35
[2022-09-08 12:32] VITALS: O2SAT 96
[2022-09-08 16:46] VITALS: BP 154/52; TEMP 97.3
== END 2022-09-08 17:00 | DRG 194 ==
LOC: ER 13:51 → ERHOLD 19:07 → 4TH 21:13
PROVIDERS: ADMIT Internal Medicine; ATTEND Internal Medicine
DX: J18.9 Pneumonia, unspecified organism (principal); I69.951 Hemiplegia and hemiparesis following unspecified cerebrovascular disease affecting right dominant side; E11.621 Type 2 diabetes mellitus with foot ulcer; R10.12 Left upper quadrant pain; E11.40 Type 2 diabetes mellitus with diabetic neuropathy, unspecified; I10 Essential (primary) hypertension; G47.00 Insomnia, unspecified; E78.5 Hyperlipidemia, unspecified; D50.9 Iron deficiency anemia, unspecified; M10.9 Gout, unspecified; K21.9 Gastro-esophageal reflux disease without esophagitis; F32.A Depression, unspecified; F41.9 Anxiety disorder, unspecified; F01.50 Vascular dementia, unspecified severity, without behavioral disturbance, psychotic disturbance, mood disturbance, and anxiety; Z20.822 Contact with and (suspected) exposure to COVID-19; Z79.82 Long term (current) use of aspirin; Z79.02 Long term (current) use of antithrombotics/antiplatelets; Z79.899 Other long term (current) drug therapy; Z95.828 Presence of other vascular implants and grafts; Z90.49 Acquired absence of other specified parts of digestive tract; Z89.421 Acquired absence of other right toe(s); Z82.3 Family history of stroke
CPT/HCPCS: 0240U; 36415; 71045; 74177; 80048; 80076; 81003; 81015; 82947; 83735; 83880; 84100; 84439; 84443; 84484; 85025; 85610; 87040; 93005; 96365; 96367; 96375; 99285; C9113; J0456; J0692; J1650; J2405; J3370; J7050; Q9967; U0003

== ENCOUNTER 2023-05-24 15:15 | Emergency (ER) | payer OTHER ==
--- NOTE | 2023-05-24 15:56 | RAD REPORT ---
EXAM DESCRIPTION: RAD - Chest Single View - 05/24/2023 3:51 pm CLINICAL HISTORY: CHEST PAIN Chest pain. COMPARISON: Chest Single View dated 09/06/2022; Chest Single View dated 02/18/2016; Chest Single View d ated 02/17/2016; CHEST SINGLE VIEW dated 06/16/2011 FINDINGS: Portable technique limits examination quality. Mild pulmonary edema is seen. The heart is enlarged in size moderately. No displaced fractures. IMPRESSION: Mild to moderate CHF.
[2023-05-24 16:02] LABS: Hematocrit 32.2 % (36.0-45.0); Lymphocytes % 27.7 % (15.3-44.8); MCV 70.4 fL (80-100); MPV 8.4 fL (7.6-11.3); Platelets 231 thou/uL (152-406); RBC Red Blood Cell Count 4.58 M/uL (3.86-4.86)
[2023-05-24 16:03] LABS: Absolute Lymphocytes (CBC) 4.2 K/uL (0.7-4.9)
[2023-05-24] MEDS ORDERED: ONDANSETRON 4 MG/2 ML VIAL ONE (16:34)
[2023-05-24 17:34] LABS: Specific Gravity 1.013 (1.005-1.030); Urine Bacteria <20 /HPF (<20); Urine Bilirubin NEGATIVE (Negative); Urine Blood Negative (Negative); Urine Clarity Extremely Turbid (Clear); Urine Color Orange (Yellow); Urine Glucose NEGATIVE (Negative); Urine Protein 2+ (Negative); Urine RBC 21-50 /HPF (None Seen); Urine Urobilinogen Normal (Normal); Urine pH 5.5 (5.0-7.0)
[2023-05-24 17:37] LABS: Troponin High Sensitivity 11.1 pg/mL (<58.9)
[2023-05-24 17:39] LABS: Potassium 4.2 mEq/L (3.5-5.1)
[2023-05-24] MEDS ORDERED: CEFTRIAXONE 1000 MG/VIAL ONE (18:28)
--- NOTE | 2023-05-24 18:54 | RAD REPORT ---
EXAM DESCRIPTION: CTAbdomen Pelvis W Contrast - 05/24/2023 6:40 pm CLINICAL HISTORY: Abdominal pain. ABD PAIN COMPARISON: Abdomen Pelvis W Contrast dated 09/06/2022 TECHNIQUE: Biphasic CT imaging of the abdomen and pelvis was performed with 100 ml non-ionic IV cont rast. All CT scans are performed using dose optimization technique as appropriate and may include automated exposure control or mA/KV adjustment according to patient size. FINDINGS: Mild interstitial prominence in the lung bases. Mild fatty liver is seen. Cholecystectomy clips. Spleen, pancreas, adrenal glands and kidneys are wit hin normal limits. Aortoiliac atherosclerosis. No bowel obstruction, free air, free fluid or abscess. Moderate stool is present throughout the colon . The appendix is not identified as a discrete structure, however, no secondary findings of appendici tis are identified. No evidence of significant lymphadenopathy. Urinary bladder wall thickening is present diffusely. No suspicious bony findings. IMPRESSION: Urinary bladder wall thickening is present which may indicate infection/cystitis. Mild fatty liver. Moderate aortoiliac atherosclerosis.
--- NOTE | 2023-05-24 19:06 | ER ---
Nurse's Notes [facility] Name: Renetta Palmer Age: 68 yrs Sex: Female : 1955 Arrival Date: 05/24/2023 Time: 15:15 Bed 8 Private MD: Diagnosis: UTI/ Urinary tract infection, site not specified Presentation: 05/24 15:23 Chief complaint: EMS states: chest pain x2 days radiating to left arm. Coronavirus tm6 screen: Vaccine status: Patient reports receiving the 2nd dose of the covid vaccine. Client denies travel out of the [place] in the last 14 days. Client indicates they have traveled out of the [place] in the last 14 days. At this time, unable to obtain information related to travel outside the [place] Ebola Screen: Patient negative for fever greater than or equal to 101.5 degrees Fahrenheit, and additional compatible Ebola Virus Disease symptoms Patient denies exposure to infectious person. Patient denies travel to an Ebola-affected area in the 21 days before illness onset. No symptoms or risks identified at this time. Initial Sepsis Screen: Does the patient meet any 2 criteria? No. Patient's initial sepsis screen is negative. Does the patient have a suspected source of infection? No. Patient's initial sepsis screen is negative. Risk Assessment: Do you want to hurt yourself or someone else? Patient reports no desire to harm self or others. Onset of symptoms was May 23, 2023. 15:23 Method Of Arrival: EMS: [facility] tm6 15:23 Acuity: CRYS 3 tm6 Triage Assessment: 15:28 General: Appears uncomfortable, Behavior is calm, cooperative, appropriate for age. tm6 Pain: Complains of pain in chest Pain radiates to left arm. EENT: No signs and/or symptoms were reported regarding the EENT system. Neuro: Level of Consciousness is awake, alert, obeys commands, Oriented to person, place, time, situation, Appropriate for age. Cardiovascular: Reports chest pain, Capillary refill < 3 seconds Patient's skin is warm and dry. Respiratory: Airway is patent Respiratory effort is even, unlabored, Respiratory pattern is regular, symmetrical. GI: Abdomen is round non-distended. : No signs and/or symptoms were reported regarding the genitourinary system. Derm: No signs and/or symptoms reported regarding the dermatologic system. Musculoskeletal: No signs and/or symptoms reported regarding the musculoskeletal system. Historical: - PMHx: 15:28 Anemia; VASCULAR DEMENTIA; Anxiety; constipation; CVA; Depression; Diabetes - NIDDM; tm6 GERD; Gout; Difficulty walking; Hyperlipidemia; Hemiplegia R; Hypertension; MUSCLE WEAKNESS; Toe amputation R foot; insomnia; - Immunization history:: Adult Immunizations up to date. - Social history:: Smoking status: Patient denies any tobacco usage or history of. Screenin:39 [facility] ED Fall Risk Assessment (Adult) History of falling in the last 3 months, rv including since admission No falls in past 3 months (0 pts) Impaired Gait Yes (1 pt) Score/Fall Risk Level 0 - 2 = Low Risk Oriented to surroundings, Maintained a safe environment, Educated pt \T\ family on fall prevention, incl call for assistance when getting out of bed, Assessed \T\ reinforced patient's understanding of fall precautions, Provided non-skid footwear, Hourly rounding (assess needs \T\ fall precautionary measures) done, Used ambulatory aids as needed (educated on \T\ assisted with), Used gait belt as appropriate. Abuse screen: Denies threats or abuse. Denies injuries from another. Nutritional screening: No deficits noted. Tuberculosis screening: No symptoms or risk factors identified. Assessment: 15:31 Reassessment: see triage assessment. tm6 16:15 Reassessment: Patient appears in no apparent distress at this time. No changes from tm6 previously documented assessment. Patient and/or family updated on plan of care and expected duration. Pain level reassessed. 17:03 Reassessment: Patient appears in no apparent distress at this time. No changes from ld1 previously documented assessment. Patient and/or family updated on plan of care and expected duration. Pain level reassessed. 17:54 Reassessment: Patient appears in no apparent distress at this time. No changes from ld1 previously documented assessment. Patient and/or family updated on plan of care and expected duration. Pain level reassessed. Patient denies pain at this time. 18:49 Reassessment: Patient appears in no apparent distress at this time. No changes from tm6 previously documented assessment. Patient and/or family updated on plan of care and expected duration. Pain level reassessed. 19:27 Reassessment: report given to Shon RN [facility]. awaiting transportaition. rv 20:40 Reassessment: STILL AWAITING TRANSPORTATION. rv Vital Signs: 15:23 BP 142 / 44; Pulse 59; Resp 17; Pulse Ox 94% on R/A; Weight 81 kg; Height 5 ft. 7 in. ; tm6 Pain 0/10; 15:28 BP 142 / 44; Pulse 57; Resp 15; Pulse Ox 96% on R/A; tm6 16:14 BP 155 / 50; Pulse 54; Resp 17; Temp 96.8(TE); Pulse Ox 96% on R/A; tm6 17:03 BP 150 / 51; Pulse 55; Resp 18; Pulse Ox 94% on R/A; ld1 17:54 BP 158 / 52; Pulse 53; Resp 18; Pulse Ox 94% on R/A; ld1 18:48 BP 162 / 46; Pulse 52; Resp 15; Pulse Ox 93% on R/A; Pain 0/10; tm6 20:38 BP 156 / 51; Pulse 56; Resp 19; Pulse Ox 95% on R/A; rv 15:23 Body Mass Index 27.97 (81.00 kg, 170.18 cm) tm6 15:23 Pain Scale: Adult tm6 18:48 Pain Scale: Adult tm6 Vitals: 16:14 Cardiac Rhythm Assessment Regular Sinus ray. tm6 ED Course: 15:20 Patient arrived in ED. em1 15:22 Jessica Sargent, LITZY is Primary Nurse. tm6 15:27 Castillo Munoz MD is Attending Physician. ec2 15:28 Triage completed. tm6 15:28 Arm band placed on right wrist. tm6 15:52 XRAY Chest (1 view) In Process Unspecified. EDMS 16:15 No provider procedures requiring assistance completed. Inserted saline lock: 20 gauge tm6 in right forearm, using aseptic technique. Missed attempt(s): 20 gauge in right forearm. Bleeding controlled, band aid applied, catheter tip intact. 17:20 Straight cath inserted, using sterile technique, 16 Fr. Specimen obtained. Returned ld1 clear yellow urine. Patient tolerated well. 17:51 Pure wick applied to patient. ld1 18:42 CT Abd/Pelvis - IV Contrast Only In Process Unspecified. EDMS 20:39 Patient has correct armband on for positive identification. Provided Education on: UTI. rv 20:39 IV discontinued, intact, bleeding controlled, No redness/swelling at site. Pressure rv dressing applied. Administered Medications: 16:24 Drug: Ondansetron IVP 4 mg IVP once; over 2 minutes Route: IVP; Site: right forearm; tm6 21:04 Follow up: Response: No adverse reaction rv 18:42 Drug: Rocephin IV 1 grams IV at calculated rate once; Given slow IV push per pharmacy tm6 instructions Route: IV; Rate: calculated rate; Site: right forearm; 21:04 Follow up: Response: No adverse reaction; IV Status: Completed infusion rv Medication: 20:40 VIS not applicable for this client. rv Outcome: 19:05 Discharge ordered by . [email or web address] 21:04 Discharged to residential. Report called to SHON MCGHEE rv 21:04 Condition: improved 21:04 Discharge instructions given to patient, EMS, Instructed on discharge instructions, follow up and referral plans. medication usage, Demonstrated understanding of instructions, follow-up care, medications, Prescriptions given X 1, 21:05 Patient left the ED. rv Signatures: Dispatcher [employer] Elijah Houston em1 Yohan Simms RN RN rv Jaylene Spencer RN RN ld1 Castillo Munoz MD MD ec2 Jessica Sargent RN RN tm6
--- NOTE | 2023-05-24 19:06 | EDPHYS ---
Physician Documentation [facility] Name: Renetta Palmer Age: 68 yrs Sex: Female : 1955 Arrival Date: 05/24/2023 Time: 15:15 Bed 8 Private MD: ED Physician Castillo Munoz HPI: 05/24 15:35 This 68 yrs old Black Female presents to ER via EMS with complaints of chest/abd pain. ec2 15:35 History gathered from EMS and nursing, patient with history of possible dementia ec2 reportedly had been chest pain ongoing for 2 days. Patient expressed to me that she is having some epigastric abdominal discomfort. Patient reports some associated nausea as well without vomiting or diarrhea. Patient reports no urinary complaints. Does report history of cholecystectomy. Full dose aspirin given by EMS.. 15:46 External record review performed by myself, shows a history of hemiplegia following ec2 previous CVA, dementia, hypertension, hyperlipidemia, diabetes.. Historical: - PMHx: 15:28 Anemia; VASCULAR DEMENTIA; Anxiety; constipation; CVA; Depression; Diabetes - NIDDM; tm6 GERD; Gout; Difficulty walking; Hyperlipidemia; Hemiplegia R; Hypertension; MUSCLE WEAKNESS; Toe amputation R foot; insomnia; - Immunization history:: Adult Immunizations up to date. - Social history:: Smoking status: Patient denies any tobacco usage or history of. ROS: 15:36 Constitutional: as per hpi ec2 Exam: 15:36 Constitutional: GEN: NAD Head: atraumatic Eyes: EOMI Ears: External ears are ec2 normal. CV: regular rate LUNGS: no respiratory distress ABD: non-distended, mild abdominal tenderness palpation without guarding or rigidity SKIN: no evidence of rashes MSK: no evidence of trauma NEURO: moves all extremities equally Vital Signs: 15:23 BP 142 / 44; Pulse 59; Resp 17; Pulse Ox 94% on R/A; Weight 81 kg; Height 5 ft. 7 in. ; tm6 Pain 0/10; 15:28 BP 142 / 44; Pulse 57; Resp 15; Pulse Ox 96% on R/A; tm6 16:14 BP 155 / 50; Pulse 54; Resp 17; Temp 96.8(TE); Pulse Ox 96% on R/A; tm6 17:03 BP 150 / 51; Pulse 55; Resp 18; Pulse Ox 94% on R/A; ld1 17:54 BP 158 / 52; Pulse 53; Resp 18; Pulse Ox 94% on R/A; ld1 18:48 BP 162 / 46; Pulse 52; Resp 15; Pulse Ox 93% on R/A; Pain 0/10; tm6 20:38 BP 156 / 51; Pulse 56; Resp 19; Pulse Ox 95% on R/A; rv 15:23 Body Mass Index 27.97 (81.00 kg, 170.18 cm) tm6 15:23 Pain Scale: Adult tm6 18:48 Pain Scale: Adult tm6 MDM: 15:27 Patient medically screened. ec2 15:36 ED course: Arrives today due to concern for chest and abdominal pain. Examination ec2 remarkable for abdominal tenderness palpation without guarding or rigidity with reassuring vital signs otherwise. Will obtain a cardiac work-up as well as evaluate for intra-abdominal pathology. Currently considering process such as atypical ACS, pancreatitis, UTI.. 16:13 ED course: EKG independently reviewed and interpreted by me, shows sinus rhythm, rate ec2 of 57, no acute ST segment elevations, nonconcerning intervals.. 17:54 ED course: CBC remarkable for slight leukocytosis at 15 otherwise no evidence of anemia ec2 noted. Lipase within normal ranges, troponin within normal ranges, urine is infectious appearing with leuk esterase and WBCs present. Metabolic profile shows appropriate electrolytes and some diminished renal function with a GFR 54. . 19:03 ED course: CT abdomen pelvis shows cystitis. On reassessment patient remains ec2 well-appearing in no acute distress, has stable vital signs, has no complaints of chest pain on my examination and has a reassuring abdominal exam. I will discharge home prescription for antibiotics for urinary tract infection. Return precautions given.. 19:05 Data reviewed: vital signs. ec2 05/24 15:24 Order name: Basic Metabolic Panel; Complete Time: 17:54 ld1 05/24 15:24 Order name: CBC with Diff; Complete Time: 17:21 ld1 05/24 15:24 Order name: Troponin HS; Complete Time: 17:54 ld1 05/24 15:36 Order name: Urinalysis w/ reflexes; Complete Time: 17:54 ec2 05/24 15:37 Order name: Lipase; Complete Time: 17:54 ec2 05/24 17:37 Order name: Urine Culture EDMS 05/24 15:24 Order name: XRAY Chest (1 view); Complete Time: 17:21 ld1 05/24 15:35 Order name: CT Abd/Pelvis - IV Contrast Only; Complete Time: 19:01 ec2 05/24 15:24 Order name: EKG; Complete Time: 15:25 ld1 05/24 15:24 Order name: Cardiac monitoring; Complete Time: 15:24 ld1 05/24 15:24 Order name: EKG - Nurse/Tech; Complete Time: 16:13 ld1 05/24 15:24 Order name: IV Saline Lock; Complete Time: 15:46 ld1 05/24 15:24 Order name: Labs collected and sent; Complete Time: 15:46 ld1 05/24 15:24 Order name: O2 Per Protocol; Complete Time: 15:24 ld1 05/24 15:24 Order name: O2 Sat Monitoring; Complete Time: 15:24 ld1 Administered Medications: 16:24 Drug: Ondansetron IVP 4 mg IVP once; over 2 minutes Route: IVP; Site: right forearm; tm6 21:04 Follow up: Response: No adverse reaction rv 18:42 Drug: Rocephin IV 1 grams IV at calculated rate once; Given slow IV push per pharmacy tm6 instructions Route: IV; Rate: calculated rate; Site: right forearm; 21:04 Follow up: Response: No adverse reaction; IV Status: Completed infusion rv Disposition Summary: 05/24/23 19:05 Discharge Ordered Notes: Location: Home ec2 Condition: Stable ec2 Diagnosis - UTI/ Urinary tract infection, site not specified ec2 Discharge Instructions: - Discharge Summary Sheet ec2 - Urinary Tract Infection, Adult, [id number] ec2 Forms: - Medication Reconciliation Form ec2 - Thank You Letter ec2 - Antibiotic Education ec2 - Prescription Opioid Use ec2 - Patient Portal Instructions ec2 - Leadership Thank You Letter ec2 Prescriptions: - Cephalexin 500 mg Oral capsule - take 1 capsule ORAL route every 12 hours for 5 days; 10 capsule; Refills: 0, ec2 Product Selection Permitted Signatures: Dispatcher [employer] EDJaylene Frey RN RN ld1 Castillo Munoz MD MD ec2 Jessica Sargent RN RN tm6 Yohan Simms RN rv Corrections: (The following items were deleted from the chart) 19:19 19:03 ED course: On reassessment patient remains well-appearing in no acute distress, ec2 has stable vital signs, has no complaints of chest pain on my examination and has a reassuring abdominal exam. I will discharge home prescription for antibiotics for urinary tract infection. Return precautions given.. ec2
--- NOTE | 2023-05-25 07:58 | EKG ---
Test Date: 2023-05-24 Test Time: 16:08:52 Laboratory Equipment Cleaner: ZARA MEASUREMENT RESULTS: Intervals: Rate: 57 DC: 176 QRSD: 82 QT: 462 QTc: 449 [place]: P: 35 DC: 176 QRS: 9 T: 33 INTERPRETIVE STATEMENTS: Sinus bradycardia Otherwise normal ECG Compared to ECG 09/06/2022 16:50:16 Sinus rhythm no longer present Electronically Signed On 05-25-23 07:57:08 CDT by Martir Lyman
[2023-05-25 16:11] VITALS: BP 156/51; O2SAT 95
[2023-05-25 16:12] VITALS: TEMP 96.8
== END 2023-05-24 21:05 | disposition home or self-care (01) ==
LOC: ER 15:15
DX: N39.0 Urinary tract infection, site not specified (principal); R07.9 Chest pain, unspecified; D64.9 Anemia, unspecified; E11.8 Type 2 diabetes mellitus with unspecified complications; I10 Essential (primary) hypertension; E78.5 Hyperlipidemia, unspecified; R11.0 Nausea; G81.90 Hemiplegia, unspecified affecting unspecified side
CPT/HCPCS: 96365; 93005; 87088; 85025; 81001; 87086; 80048; 36415; 84484; 83690; 74177; 71045; 51702; 96375; 99285; 96366; J2405; J0696

== ENCOUNTER 2025-05-25 10:01 | Emergency (ER) | payer OTHER ==
[2025-05-25] MEDS ORDERED: EPINEPHrine 1 MG/10 ML SYR IV ONE (10:02)
[2025-05-25] MEDS ORDERED: Calcium Chloride 10% INJ SYR IV ONE (10:02)
[2025-05-25] MEDS ORDERED: NA CHLORIDE 0.9% 1,000 ML IV ONE (10:02)
--- NOTE | 2025-05-25 10:32 | EDPHYS ---
Physician Documentation [facility] Name: Renetta Palmer Age: 70 yrs Sex: Female : 1955 Arrival Date: 05/25/2025 Time: 10:01 Bed 3 Private MD: ED Physician Geraldo Singh HPI: 05/25 10:27 This 70 yrs old Black Female presents to ER via Unassigned with complaints of CPR. rn 10:27 Preceding the arrest, the patient had chest pain. The arrest occurred at intermediate. rn Patient brought in by EMS, report was that at intermediate patient was complaining of chest pain. Was awake and talking to EMS upon arrival at intermediate but on transport patient became unresponsive and pulseless just before arriving here. They report patient became bradycardic and hypotensive just prior to arrival and lost pulse. No other information known.. Historical: - Allergies: 10:40 Unable to obtain; ss - PMHx: 10:40 Anemia; Anxiety; constipation; CVA; Depression; Diabetes - NIDDM; Difficulty walking; ss GERD; Gout; Hemiplegia R; Hyperlipidemia; Hypertension; insomnia; MUSCLE WEAKNESS; Toe amputation R foot; VASCULAR DEMENTIA; - PSHx: 10:40 Unable to Obtain; ss - History obtained from: EMS. ROS: 10:27 Unable to obtain ROS due to comatose state, rn Exam: 10:27 Constitutional: GCS 3, no spontaneous movement Cardiovascular: No spontaneous pulse, rn PEA on monitor Respiratory: Coarse breath sounds with bagging Abdomen/GI: Nondistended abdomen MS/ Extremity: Cool extremities without pulse Neuro: GCS 3 Vital Signs: 09:58 Pulse 0; ss [place] Coma Score: 10:42 Eye Response: none(1). Motor Response: none(1). Verbal Response: none(1). Total: 3. ss Procedures: 10:29 CPR: See CPR flow sheet. Initial patient assessment: unresponsive, agonal respirations, rn no respiratory effort, pulses present w/ compressions, The presenting cardiac rhythm is PEA. Compressions: began prior to arrival. Meds given: See Meds list. despite ED evaluation and treatment, the patient . CPR was stopped at 10:20. Intubation: Ventilated with 100% NRB prior to procedure. Intubated orally using # 4 Rebecca blade with 7.0 mm ETT. was successful on first attempt. Cricoid pressure applied during procedure. Tube secured with ETT kenney at right side of mouth measured 24 cm at lip. Placement verified by CO2 detector with (+) color change, Patient tolerated well. 10:30 Ultrasound: Type: Focused cardiac exam, performed by the emergency department rn physician, Bedside focused cardiac exam performed by me using ultrasound, no pericardial effusion, no contractions noted, occasional fibrillation but no contractions with effective pump noted. Pulmonary edema on lung windows.. MDM: 10:21 Medical Screening Exam initiated rn 10:29 Differential diagnosis: arrythmia, cardiac arrest, respiratory arrest. Data reviewed: rn vital signs, nurses notes, and as a result, I will. 05/25 10:18 Order name: Glucose, Ancillary Testing; Complete Time: 11:56 EDMS Administered Medications: 10:00 Drug: EPINEPHrine 0.1mg/mL 1:10,000 1 mg IVP once {Note: given in IO.} Route: IVP; ss Site: Other; 10:02 Follow up: Response: No change in condition ss 10:01 Drug: Calcium Chloride 1 grams IVP once {Note: IO.} Route: IVP; Site: Other; ss 10:05 Follow up: Response: No change in condition ss 10:02 Drug: EPINEPHrine 0.1mg/mL 1:10,000 1 mg IVP once {Note: IO.} Route: IVP; Site: Other; ss 10:04 Follow up: Response: No change in condition ss 10:04 Drug: EPINEPHrine 0.1mg/mL 1:10,000 1 mg IVP once Route: IVP; Site: right wrist; ss 10:08 Follow up: Response: + pulse \T\ 1008 ss 10:08 Drug: Sodium Bicarbonate 1 amp IVP once; (50 mL); equals 50 mEq Route: IVP; Site: right ss wrist; 10:10 Follow up: Response: No adverse reaction ss 10:09 Drug: EPINEPHrine 0.1mg/mL 1:10,000 1 mg IVP once Route: IVP; Site: right wrist; ss 11:08 Follow up: Response: No adverse reaction ss 10:12 Drug: EPINEPHrine 0.1mg/mL 1:10,000 1 mg IVP once Route: IVP; Site: right wrist; ss 10:15 Follow up: Response: No change in condition Point of Care Testing: Blood Glucose: 10:05 Blood Glucose: 186 mg/dL; ss Ranges: Critical Glucose Levels:Adult <50 mg/dl or >400 mg/dl <40 mg/dl or >180 mg/dl Disposition: : Critical Care:. . rn Disposition Summary: 05/25/25 10:31 Patient Notes: Location: Controls Project Engineer rn Pronouncing Physician: Geraldo Singh rn Time of : 10:05/25/2025 rn Diagnosis - Cardiac arrest, cause unspecified cadmium burner time excluding procedures: Critical care time: Bedside Care: 35 minutes. Total time: 35 minutes rn Signatures: Geraldo Singh MD MD rn Blanchard, Shelby, RN RN ss
--- NOTE | 2025-05-25 10:32 | ER ---
Nurse's Notes [facility] Name: Renetta Palmer Age: 70 yrs Sex: Female : 1955 Arrival Date: 05/25/2025 Time: 10:01 Bed 3 Private MD: Diagnosis: Cardiac arrest, cause unspecified Presentation: 05/25 09:58 Chief complaint: EMS states: EMS called for c/o chest pain. Initial BP 110/80, pulse ss 70's, patient awake and alert, c/o needing to have a BM. EMS reports upon arrival to ER, pt's pulse dropped to 40's, last BP 90/60. Pt suddenly became unresponsive and pulseless while unloading from ambulance. Alistair ortiz called \T\ 58, manual CPR started by ER staff. Care prior to arrival: Medication(s) given: Atropine 1 mg given by EMS via IO to R humerus. No response reported. Narcan 2 mg given, no response reported. Glucose check: 176. Compressions began at 09:58. 09:58 Acuity: CRYS 1 ss 09:58 Method Of Arrival: EMS: [facility] ss 09:58 Onset of symptoms was May 25, 2025. Care prior to arrival: IO placed to R humeral ss head. Historical: - Allergies: 10:40 Unable to obtain; ss - PMHx: 10:40 Anemia; Anxiety; constipation; CVA; Depression; Diabetes - NIDDM; Difficulty walking; ss GERD; Gout; Hemiplegia R; Hyperlipidemia; Hypertension; insomnia; MUSCLE WEAKNESS; Toe amputation R foot; VASCULAR DEMENTIA; - PSHx: 10:40 Unable to Obtain; ss - History obtained from: EMS. Assessment: 09:58 Cardiac rhythm is PEA. ss 09:58 General: Appears Pt is unresponsive, apneic. No pulse. Alistair ortiz called. CPR initiated ss by ER staff, manually . 09:59 CPR assessment: unresponsive, pulses present w/ compressions. ss 10:01 Reassessment: pulse check, no pulse. PEA CPR resumed. ss 10:03 Reassessment: pulse check, no pulse. CPR resumed. ss 10:05 Reassessment: pulse check, no pulse. PEA. Dr. Singh at bedside assessing cardiac ss activity with US machine. Glucose check, 186. CPR resumed. 10:08 Reassessment: Pulse check. PEA. No pulse. Dr. Singh at bedside assessing cardiac ss activity with US machine. CPR resumed. 10:10 Reassessment: Pulse check + pulse, weak/ thready. Heart rate 50. ss 10:12 Reassessment: No pulse. PEA. CPR initiated. ss 10:14 Reassessment: No pulse, Dr. Singh confirming cardiac activity at bedside with US. PEA. ss CPR resumed. 10:16 Reassessment: PEA no pulse. CPR resumed. ss 10:18 Reassessment: Pulse check, no pulse. Dr. Singh at bedside confirming cardiac activity. ss V fib noted. DEFIB. CPR resumed. 10:20 Reassessment: Pulse check, asystole. Time of called by Dr. Singh. 13:24 Reassessment: Body released to [facility]. Vital Signs: 09:58 Pulse 0; ss [place] Coma Score: 10:42 Eye Response: none(1). Motor Response: none(1). Verbal Response: none(1). Total: 3. ED Course: 10:02 Patient arrived in ED. eb 10:03 Geraldo Singh MD is Attending Physician. eb 10:03 Assisted provider with intubation using 7.5 mm ETT via oral route. ET tube secured at ss 24cm at the lips. Set up intubation tray. Intubated by Geraldo Singh MD. 10:04 Inserted saline lock: 20 gauge in right wrist, using aseptic technique. 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 eb 10:31 Triage completed. ss 10:31 Geraldo Singh MD is Pronouncing Provider. rn 11:01 Jn Whitlock RN is Primary Nurse. eb Administered Medications: 10:00 Drug: EPINEPHrine 0.1mg/mL 1:10,000 1 mg IVP once {Note: given in IO.} Route: IVP; Site: Other; 10:02 Follow up: Response: No change in condition ss 10:01 Drug: Calcium Chloride 1 grams IVP once {Note: IO.} Route: IVP; Site: Other; ss 10:05 Follow up: Response: No change in condition ss 10:02 Drug: EPINEPHrine 0.1mg/mL 1:10,000 1 mg IVP once {Note: IO.} Route: IVP; Site: Other; ss 10:04 Follow up: Response: No change in condition ss 10:04 Drug: EPINEPHrine 0.1mg/mL 1:10,000 1 mg IVP once Route: IVP; Site: right wrist; ss 10:08 Follow up: Response: + pulse \T\ 1008 ss 10:08 Drug: Sodium Bicarbonate 1 amp IVP once; (50 mL); equals 50 mEq Route: IVP; Site: right ss wrist; 10:10 Follow up: Response: No adverse reaction ss 10:09 Drug: EPINEPHrine 0.1mg/mL 1:10,000 1 mg IVP once Route: IVP; Site: right wrist; ss 11:08 Follow up: Response: No adverse reaction ss 10:12 Drug: EPINEPHrine 0.1mg/mL 1:10,000 1 mg IVP once Route: IVP; Site: right wrist; ss 10:15 Follow up: Response: No change in condition ss Point of Care Testing: Blood Glucose: 10:05 Blood Glucose: 186 mg/dL; ss Ranges: Outcome: 11:00 Patient : Time of 10:20 Pronounced by Geraldo Singh MD 11:00 Condition: 13:23 Patient : Body to home, ss 13:24 Patient left the ED. Signatures: Geraldo Singh MD MD rn Blanchard, Shelby, RN RN ss Botello, Elizabeth eb Corrections: (The following items were deleted from the chart) 11:02 10:36 Calcium Chloride IVP 1 grams IVP in Other; IO ss ss 11:05 10:34 EPINEPHrine 1:10,000 IVP 1:10,000 1 mg IVP in right wrist ss ss
== END 2025-05-25 13:24 ==
LOC: ER 10:01
DX: I46.9 Cardiac arrest, cause unspecified (principal); D64.9 Anemia, unspecified; F41.9 Anxiety disorder, unspecified; E11.9 Type 2 diabetes mellitus without complications; E78.5 Hyperlipidemia, unspecified; I10 Essential (primary) hypertension; F01.50 Vascular dementia, unspecified severity, without behavioral disturbance, psychotic disturbance, mood disturbance, and anxiety; G81.91 Hemiplegia, unspecified affecting right dominant side
CPT/HCPCS: 82947; 31500; 92950 ×3; 99291; J0169; J7030